=== PATIENT | female | born 1990 | race Caucasian/White ===

== ENCOUNTER 2016-06-19 10:44 | Emergency (ER) | payer SELFPAY ==
[2016-06-19 11:21] VITALS: BP 122/60
--- NOTE | 2016-06-19 12:12 | UC ---
Dental HPI - HPI Summary HPI Summary: Pt presents c/o right lower molar pain and swelling. Pt is concerned that she has a dental abscess. Pt does not have local dental care provider. Pt is new to the area and is without Health insurance and has not seen a PCP or Dental care provider in "a long while" - History of Current Complaint Chief Complaint: UCDentalProblem Stated Complaint: DENTAL COMPLAINT Time Seen by Provider: 06/19/16 11:38 Hx Obtained From: Patient Hx Last Menstrual Period: 05/29/16 ?: No Onset/Duration: Gradual Onset, Lasting Days Severity: Mild Pain Intensity: 6 Pain Scale Used: 0-10 Numeric Aggravating: Chewing Related History: Swelling, Other - tenderness with chewing, and generalized poor dentition - Allergies/Home Medications Allergies/Adverse Reactions: Allergies Allergy/AdvReac Type Severity Reaction Status Date / Time Morphine Allergy Unknown Verified 06/19/16 11:14 Reaction Details PMH/Surg Hx/FS Hx/Imm Hx Previously Healthy: Yes - Surgical History Surgical History: Yes Surgery Procedure, Year, and Place: Tonsillectomy X 2. barthlan gland removed. - Family History Known Family History: Positive: Other - positive FMH of URI - Social History Lives: With Family Alcohol Use: Occasionally Substance Use Type: None Smoking Status (MU): Heavy Every Day Tobacco Smoker Type: Cigarettes Amount Used/How Often: 1/2 pack daily Review of Systems Constitutional: Negative Skin: Negative Eyes: Negative ENT: Dental Pain Respiratory: Negative Cardiovascular: Negative Gastrointestinal: Negative Genitourinary: Negative Motor: Negative Neurovascular: Negative Musculoskeletal: Negative Neurological: Negative Psychological: Negative All Other Systems Reviewed And Are Negative: Yes Physical Exam Triage Information Reviewed: Yes Appearance: Well-Appearing Vital Signs: Initial Vital Signs Temp 98.4 F 06/19/16 11:16 Pulse 72 06/19/16 11:16 Resp 16 06/19/16 11:16 BP 122/60 06/19/16 11:16 Pulse Ox 100 06/19/16 11:16 Vital Signs Reviewed: Yes ENT Exam: Normal Dental Exam: Other Dental: Positive: Gross Decay/Caries @ - generalized, Dental Fracture @ - right lower jaw, last molar, wisdom tooth visible Neck exam: Normal Neck: Positive: Supple Respiratory Exam: Normal Cardiovascular Exam: Normal Musculoskeletal Exam: Normal Neurological Exam: Normal Psychological Exam: Normal Skin Exam: Normal Dental Complaint Course/Dx - Course Course Of Treatment: Pt does not have established care with a dentist or PCP. Pt was given referral to [facility] PCP provider and list of dental providers. Pt reports that she is seeking Health insurance. - Differential Dx/Diagnosis Differential Diagnosis/Dx: Dental Abscess, Dental Caries, Fractured Tooth Provider Diagnoses: Dental abscess. poor dentition. dental fracture right lower last molar Discharge - Discharge Plan Condition: Stable Disposition: HOME Prescriptions: Amoxicillin CAP* [Amoxicillin 500 MG CAP*] 500 mg PO Q12H #14 cap predniSONE TAB* [Deltasone TAB*] 30 mg PO DAILY #9 tab Patient Education Materials: Dental Abscess (ED) Referrals: [facility] PHYSICIAN REFERRAL [Outside] Non Staff,Doctor [Primary Care Provider] - Additional Instructions: Please establish care with a PCP. You have indicated that you do not have a Dental provider. We have provided a list of dental providers for you to establish with.
== END 2016-06-19 12:02 | disposition home or self-care (01) ==
LOC: UCCORT 10:44
DX: K04.7 Periapical abscess without sinus (principal); S02.5XXA Fracture of tooth (traumatic), initial encounter for closed fracture; X58.XXXA Exposure to other specified factors, initial encounter; Y92.9 Unspecified place or not applicable; F17.210 Nicotine dependence, cigarettes, uncomplicated; Z88.5 Allergy status to narcotic agent
CPT/HCPCS: 99202; G0463

== ENCOUNTER 2016-08-30 09:02 | Emergency (ER) | payer OTHER ==
[2016-08-30 09:51] VITALS: BP 122/74
--- NOTE | 2016-08-30 13:20 | UC ---
Throat Pain/Nasal Owen HPI - HPI Summary HPI Summary: PATIENT PRESENTS WITH BILATERAL TONSILAR SWELLING AND PAIN SINCE 2 DAYS. SHE DENIES SICK CONTACTS. SHE HAS HAD HER TONSILS OUT TWICE FOR UNKNOWN REASONS AND HAS NEVER HAD STREP THROAT BEFORE. SHE DENIES COUGH, SOB OR CONGESTION. SHE DENIES EYE PAIN OR EAR PAIN. THROAT PAIN IS DISCRETE AND DOES NOT RADIATE. SHE NOTES TO SOME PAIN OVER THE RIGHT LYMPH NODE. SHE DENIES GAYTAN. - History of Current Complaint Chief Complaint: UCRespiratory Stated Complaint: SORE THROAT Time Seen by Provider: 08/30/16 09:38 Hx Obtained From: Patient Hx Last Menstrual Period: 08/23/16 ?: No Onset/Duration: Gradual Onset Severity: Moderate Pain Intensity: 5 Pain Scale Used: 0-10 Numeric Associated Signs & Symptoms: Positive: Dysphagia, Hoarseness, Fever - Epiglottits Risk Factors Epiglottis Risk Factors: Negative - Allergies/Home Medications Allergies/Adverse Reactions: Allergies Allergy/AdvReac Type Severity Reaction Status Date / Time Morphine AdvReac Intermediate Vomiting Verified 08/30/16 09:45 PMH/Surg Hx/FS Hx/Imm Hx Previously Healthy: Yes - Surgical History Surgical History: Yes Surgery Procedure, Year, and Place: Tonsillectomy X 2. barthlan gland removed. - Family History Known Family History: Positive: Other - positive FMH of URI - Social History Occupation: Employed Full-time Lives: With Family Alcohol Use: Weekly Substance Use Type: None Smoking Status (MU): Heavy Every Day Tobacco Smoker Type: Cigarettes Amount Used/How Often: 1/2 pack daily Length of Time of Smoking/Using Tobacco: started at age 19 Review of Systems Constitutional: Fever Skin: Negative Eyes: Negative ENT: Sore Throat Respiratory: Negative Cardiovascular: Negative Motor: Negative Neurovascular: Negative Neurological: Negative Psychological: Negative All Other Systems Reviewed And Are Negative: Yes Physical Exam Triage Information Reviewed: Yes Appearance: Well-Appearing, No Pain Distress, Well-Nourished Vital Signs: Initial Vital Signs Temp 98.7 F 08/30/16 09:40 Pulse 93 08/30/16 09:40 Resp 16 08/30/16 09:40 BP 122/74 08/30/16 09:40 Pulse Ox 100 08/30/16 09:40 Vital Signs Reviewed: Yes Eye Exam: Normal Eyes: Positive: Conjunctiva Clear ENT: Positive: Pharyngeal erythema, Tonsillar swelling, Tonsillar exudate Neck exam: Normal Neck: Positive: Supple, Enlarged Nodes @ - RIGHT ENLARGED LN Respiratory Exam: Normal Respiratory: Positive: Chest non-tender, Lungs clear Cardiovascular Exam: Normal Cardiovascular: Positive: RRR Musculoskeletal Exam: Normal Musculoskeletal: Positive: Strength Intact Neurological Exam: Normal Neurological: Positive: Alert Psychological: Positive: Normal Response To Family Skin Exam: Normal Throat Pain/Nasal Course/Dx - Course Course Of Treatment: RAPID STREP POSITIVE. AMOXICILLIN GIVEN RX. TYLENOL RECOMMENDED. - Differential Dx/Diagnosis Differential Diagnosis/HQI/PQRI: Epiglottitis, Peritonsillar Abscess, Pharyngitis, Sinusitis Provider Diagnoses: STREP THROAT Discharge - Discharge Plan Condition: Stable Disposition: HOME Prescriptions: Amoxicillin CAP* [Amoxicillin 500 MG CAP*] 500 mg PO Q12H #20 cap Patient Education Materials: Strep Throat (ED) Forms: *Work Release Referrals: Quoc Gary MD [Primary Care Provider] - Additional Instructions: Dx: Strep Throat You will need antibiotic medicine to treat your strep throat. Please take the antibiotic as directed. You should feel better within 2 to 3 days after you start antibiotics. You may return to work or school 24 hours after you start antibiotics. If you have any questions about your medications, please do no hesitate to call or talk with your pharmacist. How can I manage my symptoms? Use lozenges, ice, soft foods, or popsicles to soothe your throat. Drink juice, milk shakes, or soup if your throat is too sore to eat solid food. Drinking liquids can also help prevent dehydration. Gargle with salt water. Mix teaspoon salt in a 1 cup of warm water and gargle. This may help reduce swelling in your throat. Do not smoke. Nicotine and other chemicals in cigarettes and cigars can cause lung damage and make your symptoms worse. Ask your healthcare provider for information if you currently smoke and need help to quit. E-cigarettes or smokeless tobacco still contain nicotine. Talk to your healthcare provider before you use these products. How do I prevent the spread of strep throat? Wash your hands often. Use soap and water. Wash your hands after you use the bathroom, change a child's diapers, or sneeze. Wash your hands before you prepare or eat food. Do not share food or drinks. Replace your toothbrush after you have taken antibiotics for 24 hours.
== END 2016-08-30 10:17 | disposition home or self-care (01) ==
LOC: UCCORT 09:02
DX: J02.0 Streptococcal pharyngitis (principal); Z88.5 Allergy status to narcotic agent; F17.210 Nicotine dependence, cigarettes, uncomplicated
CPT/HCPCS: 87651; 99212; G0463

== ENCOUNTER 2016-11-15 07:14 | Emergency (ER) | payer OTHER ==
[2016-11-15 07:25] VITALS: BP 120/60
[2016-11-15] MEDS ORDERED: Cephalexin CAP* 500 MG PO ONE (07:39)
--- NOTE | 2016-11-15 07:46 | UC ---
Complaint Female HPI - HPI Summary HPI Summary: 26 yo female with <24 hr hx of dysuria/urgency and frequency no back or abd pain no f/c no n/v/d no vag d/c or itch - History Of Current Complaint Chief Complaint: UCGU Stated Complaint: URINARY COMPLAINT Time Seen by Provider: 11/15/16 07:22 Hx Obtained From: Patient Hx Last Menstrual Period: 11/09/16 Onset/Duration: Gradual Onset, Lasting Hours Timing: Intermittent, Lasting Seconds Severity Currently: None Pain Intensity: 0 - treminal dysuria Pain Scale Used: 0-10 Numeric Character: Burning Aggravating Factor(s): Urination Alleviating Factor(s): Nothing Associated Signs And Symptoms: Positive: Negative Related Hx: Similar Episode/Dx as: - UTI - Allergies/Home Medications Allergies/Adverse Reactions: Allergies Allergy/AdvReac Type Severity Reaction Status Date / Time Morphine AdvReac Intermediate Vomiting Verified 11/15/16 07:25 PMH/Surg Hx/FS Hx/Imm Hx Previously Healthy: Yes - Surgical History Surgical History: Yes Surgery Procedure, Year, and Place: Tonsillectomy X 2. barthlan gland removed. - Family History Known Family History: Positive: Hypertension, Other - positive FMH of URI - Social History Alcohol Use: Occasionally Substance Use Type: None Smoking Status (MU): Heavy Every Day Tobacco Smoker Type: Cigarettes Amount Used/How Often: 1/2 pack daily Length of Time of Smoking/Using Tobacco: started at age 19 Review of Systems Constitutional: Negative Skin: Negative Eyes: Negative ENT: Negative Respiratory: Negative Cardiovascular: Negative Gastrointestinal: Negative Genitourinary: Dysuria, Frequency, Urgency Motor: Negative Neurovascular: Negative Musculoskeletal: Negative Neurological: Negative Psychological: Negative All Other Systems Reviewed And Are Negative: Yes Physical Exam Triage Information Reviewed: Yes Appearance: Well-Appearing, No Pain Distress, Well-Nourished Vital Signs: Initial Vital Signs Temp 98.8 F 11/15/16 07:18 Pulse 83 11/15/16 07:18 Resp 18 11/15/16 07:18 BP 120/60 11/15/16 07:18 Vital Signs Reviewed: Yes Eyes: Positive: Conjunctiva Clear ENT: Positive: Hearing grossly normal. Negative: Nasal congestion, Nasal drainage, Trismus, Muffled/hoarse voice Neck: Positive: Supple, Nontender, No Lymphadenopathy Respiratory: Positive: Lungs clear, Normal breath sounds, No respiratory distress, No accessory muscle use Cardiovascular: Positive: RRR, No Murmur. Negative: Tachycardia, Bradycardia Musculoskeletal: Positive: ROM Intact, No Edema Neurological: Positive: Alert, Muscle Tone Normal Psychological Exam: Normal Skin Exam: Normal Complaint Female Dx - Differential Dx/Diagnosis Provider Diagnoses: acute cystitis Discharge - Discharge Plan Condition: Stable Disposition: HOME Prescriptions: Cephalexin CAP* [Keflex CAP*] 500 mg PO BID #14 cap Patient Education Materials: Urinary Tract Infection in Women (ED) Referrals: Quoc Gary MD [Primary Care Provider] - 3 Days (if not better)
== END 2016-11-15 07:51 | disposition home or self-care (01) ==
LOC: UCCORT 07:14
DX: N30.00 Acute cystitis without hematuria (principal); Z88.5 Allergy status to narcotic agent; F17.210 Nicotine dependence, cigarettes, uncomplicated
CPT/HCPCS: 81003; 87077; 87086; 87186; 87491; 87591; 99212; A9270-GY; G0463

== ENCOUNTER 2017-04-11 16:13 | Emergency (ER) | payer OTHER ==
[2017-04-11 17:04] VITALS: BP 118/65
--- NOTE | 2017-04-11 17:07 | UC ---
Throat Pain/Nasal Owen HPI - HPI Summary HPI Summary: Cough, laryngitis, no fevers, has been lasting for several days - History of Current Complaint Chief Complaint: UCRespiratory Stated Complaint: SORE THROAT/COUGH Time Seen by Provider: 04/11/17 16:52 Hx Obtained From: Patient Hx Last Menstrual Period: 01/18/17 ?: Yes Onset/Duration: Sudden Onset, Lasting Days - 3, Still Present Severity: Moderate Cough: Nonproductive Associated Signs & Symptoms: Positive: Hoarseness - Allergies/Home Medications Allergies/Adverse Reactions: Allergies Allergy/AdvReac Type Severity Reaction Status Date / Time Morphine AdvReac Intermediate Vomiting Verified 04/11/17 16:56 Home Medications: Home Medications Vitamin [Calna] 1 tab PO DAILY 04/11/17 [History Confirmed 04/11/17] PMH/Surg Hx/FS Hx/Imm Hx Previously Healthy: Yes - Surgical History Surgical History: Yes Surgery Procedure, Year, and Place: Tonsillectomy X 2. barthlan gland removed. - Family History Known Family History: Positive: Hypertension, Other - positive FMH of URI - Social History Occupation: Employed Full-time Lives: With Family Alcohol Use: None Substance Use Type: None Smoking Status (MU): Former Smoker Type: Cigarettes Amount Used/How Often: 1/2 pack daily Length of Time of Smoking/Using Tobacco: started at age 19 When Did the Patient Quit Smoking/Using Tobacco: 02/19/17 - Immunization History Most Recent Influenza Vaccination: NO Review of Systems Constitutional: Negative Skin: Negative Eyes: Negative ENT: Negative Respiratory: Negative Cardiovascular: Negative Gastrointestinal: Negative Genitourinary: Negative Motor: Negative Neurovascular: Negative Musculoskeletal: Negative Neurological: Negative Psychological: Negative Is Patient Immunocompromised?: No All Other Systems Reviewed And Are Negative: Yes Physical Exam Triage Information Reviewed: Yes Appearance: Well-Appearing, No Pain Distress, Well-Nourished Vital Signs: Initial Vital Signs Temp 98.9 F 04/11/17 16:57 Pulse 75 04/11/17 16:57 Resp 18 04/11/17 16:57 BP 118/65 04/11/17 16:57 Pulse Ox 100 04/11/17 16:57 Vital Signs Reviewed: Yes Eye Exam: Normal Eyes: Positive: Conjunctiva Clear ENT Exam: Normal ENT: Positive: Normal ENT inspection, Hearing grossly normal, Pharynx normal, Nasal congestion, TMs normal, Hoarse voice, Uvula midline. Negative: Tonsillar swelling, Tonsillar exudate, Trismus, Muffled voice, Dental tenderness, Sinus tenderness Dental Exam: Normal Neck exam: Normal Neck: Positive: Supple, Nontender, No Lymphadenopathy Respiratory Exam: Normal Respiratory: Positive: Chest non-tender, Lungs clear, Normal breath sounds, No respiratory distress, No accessory muscle use Cardiovascular Exam: Normal Cardiovascular: Positive: RRR, No Murmur, Pulses Normal, Brisk Capillary Refill Musculoskeletal Exam: Normal Musculoskeletal: Positive: Strength Intact, ROM Intact, No Edema Neurological Exam: Normal Neurological: Positive: Alert, Muscle Tone Normal Psychological Exam: Normal Skin Exam: Normal Diagnostics - Laboratory Diagnostic Studies Completed/Ordered: RST (-) Throat Pain/Nasal Course/Dx - Course Assessment/Plan: Increase fluids rest tylenol, throat john. follow with pcp - Differential Dx/Diagnosis Provider Diagnoses: Laryngitis, viral illness Discharge - Discharge Plan Condition: Stable Disposition: HOME Patient Education Materials: Viral Syndrome (ED), Cold Symptoms (ED) Referrals: Ina Smart MD [Primary Care Provider] - If Needed Additional Instructions: I would encourage you to speak with your doctor about getting a flu vaccine!
== END 2017-04-11 17:36 | disposition home or self-care (01) ==
LOC: UCCORT 16:13
DX: O99.519 Diseases of the respiratory system complicating pregnancy, unspecified trimester (principal); J04.0 Acute laryngitis; B34.9 Viral infection, unspecified; Z3A.00 Weeks of gestation of pregnancy not specified; Z87.891 Personal history of nicotine dependence; Z88.5 Allergy status to narcotic agent
CPT/HCPCS: 87651; 99211; G0463

== ENCOUNTER 2017-06-10 15:27 | Emergency (ER) | payer SELFPAY ==
[2017-06-10 15:45] VITALS: BP 137/70
--- NOTE | 2017-06-10 15:57 | UC ---
Complaint Female HPI - HPI Summary HPI Summary: pt c/o sudden onset urinary frequency. Pt is 21 weeks . - History Of Current Complaint Chief Complaint: UCGU Stated Complaint: URINARY COMPLAINT Time Seen by Provider: 06/10/17 15:47 Hx Obtained From: Patient Hx Last Menstrual Period: 01/18/17 ?: Yes Onset/Duration: Sudden Onset, Still Present Timing: Intermittent Severity Initially: Mild Severity Currently: Mild Pain Intensity: 0 Character: Not Applicable Aggravating Factor(s): Nothing Alleviating Factor(s): Nothing Associated Signs And Symptoms: Positive: Negative - Risk Factors Ectopic Risk Factor: Negative - Allergies/Home Medications Allergies/Adverse Reactions: Allergies Allergy/AdvReac Type Severity Reaction Status Date / Time morphine Allergy Vomiting Verified 06/10/17 15:46 PMH/Surg Hx/FS Hx/Imm Hx Previously Healthy: Yes - Surgical History Surgical History: Yes Surgery Procedure, Year, and Place: Tonsillectomy X 2. barthlan gland removed. - Family History Known Family History: Positive: Hypertension, Other - positive FMH of URI - Social History Occupation: Employed Full-time Lives: With Family Alcohol Use: None Substance Use Type: None Smoking Status (MU): Former Smoker Type: Cigarettes Amount Used/How Often: 1/2 pack daily Length of Time of Smoking/Using Tobacco: started at age 19 Have You Smoked in the Last Year: Yes When Did the Patient Quit Smoking/Using Tobacco: 02/19/17 - Immunization History Most Recent Influenza Vaccination: NO Review of Systems Constitutional: Negative Skin: Negative Eyes: Negative ENT: Negative Respiratory: Negative Cardiovascular: Negative Gastrointestinal: Negative Genitourinary: Frequency Motor: Negative Neurovascular: Negative Musculoskeletal: Negative Neurological: Negative Psychological: Negative Is Patient Immunocompromised?: No All Other Systems Reviewed And Are Negative: Yes Physical Exam Triage Information Reviewed: Yes Appearance: Well-Appearing Vital Signs: Initial Vital Signs Temp 99.2 F 06/10/17 15:43 Pulse 74 06/10/17 15:43 Resp 18 06/10/17 15:43 BP 137/70 06/10/17 15:43 Pulse Ox 100 06/10/17 15:43 Vital Signs Reviewed: Yes Eye Exam: Normal ENT Exam: Normal Dental Exam: Normal Neck exam: Normal Respiratory Exam: Normal Cardiovascular: Positive: RRR Abdominal Exam: Other - Musculoskeletal Exam: Normal Neurological Exam: Normal Psychological Exam: Normal Skin Exam: Normal Complaint Female Dx - Course Course Of Treatment: I discussed with the pt the results of the UA and discussed with the pt that as her progresses that the baby growth can increase urinary frequency. - Differential Dx/Diagnosis Provider Diagnoses: urinary frequency Discharge - Discharge Plan Condition: Stable Disposition: HOME Patient Education Materials: Urinary Urgency and Frequency (DC) Referrals: Ina Smart MD [Primary Care Provider] - If Needed Additional Instructions: Please follow up with your PCP or return to clinic as needed.
== END 2017-06-10 16:03 | disposition home or self-care (01) ==
LOC: UCCORT 15:27
DX: O26.892 Other specified pregnancy related conditions, second trimester (principal); Z3A.21 21 weeks gestation of pregnancy; R35.0 Frequency of micturition; Z87.891 Personal history of nicotine dependence; Z88.5 Allergy status to narcotic agent
CPT/HCPCS: 81003; 99211; G0463

== ENCOUNTER 2023-06-08 08:16 | Inpatient (IN) ==
[~2023-06-08 08:16] MED LIST: Dexamethasone IV 4 MG/ML VIAL 1 ml VIAL ONE; Lidocaine 2% PF 5 ML VIAL ONE; Midazolam 2 mg/2 ml VIAL 1 mg/ml 2 ml VIAL (2 mg) ONE; Naloxone 0.4 mg VIAL 0.4 mg/ml 1 ml VIAL IV PRN; Ondansetron 4 mg VIAL 2 MG/ML 2 ml VIAL ONE; Prochlorperazine 5 mg/ml 2 ml VIAL (10 mg) IV PRN; Propofol 10 MG/ML 20 ML BTL ONE; Rocuronium 50 mg VIAL 10 mg/ml 5 ml VIAL (50 mg) ONE; Sevoflurane BOTTLE ONE; fentaNYL 250 mcg/5 ml 50 MCG/ML 5 ml VIAL (250 MCG) ONE
[2023-06-08] MEDS ORDERED: ceFAZolin 2 GM PREMIX 2 GM/50 ML BAG ONE (08:41)
[2023-06-08] MEDS ORDERED: Chlorhexidine MOUTHWASH 0.12% 15 ML UDC ONE (08:41)
[2023-06-08 08:51] LABS: Rapid COVID-19 Molecular Undetected (Undetected)
[2023-06-08] MEDS ORDERED: Propofol 10 MG/ML 20 ML BTL ONE (09:27)
[2023-06-08] MEDS ORDERED: Acetaminophen IV 1 GM/100ML 1,000 MG/100 ML BAG IV ONE (10:16)
[2023-06-08] MEDS ORDERED: Gelfoam Sponge SIZE 100 SPONGE ONE (10:17)
[2023-06-08] MEDS ORDERED: ceFAZolin VIAL VIAL ONE (10:17)
[2023-06-08] MEDS ORDERED: Thrombin 5,000 UNITS(BOVINE) for Ultrasound Guided Pseudoaneursym ONE (10:17)
[2023-06-08] MEDS ORDERED: Lidocaine 1% w EPI 1:100,000 MDV 20 ML VIAL ONE (10:17)
[2023-06-08] MEDS ORDERED: Midazolam 2 mg/2 ml VIAL 1 mg/ml 2 ml VIAL (2 mg) ONE (11:13)
[2023-06-08] MEDS ORDERED: fentaNYL 100 mcg/2 ml 50 MCG/ML VIAL ONE ×3 (11:29→15:10)
[2023-06-08] MEDS ORDERED: Rocuronium 50 mg VIAL 10 mg/ml 5 ml VIAL (50 mg) ONE (12:08)
[2023-06-08] MEDS ORDERED: Sterile Water for Inj 10 ML ONE (12:17)
[2023-06-08] MEDS ORDERED: Ondansetron 4 mg VIAL 2 MG/ML 2 ml VIAL IV PRN (13:49)
[2023-06-08] MEDS ORDERED: Phenol 1.4% Throat Spray BTL MT PRN (13:49)
[2023-06-08] MEDS ORDERED: Magnesium Hydroxide LIQ 30 ML UDC PO PRN (13:49)
[2023-06-08] MEDS ORDERED: Dextran 70/Hypromellose Tears Eye Drops 15 ml BTL (for Artificials Tears) BOTH EYES PRN (13:49)
[2023-06-08] MEDS ORDERED: Benzocaine/Menthol LOZ MT PRN (13:49)
[2023-06-08] MEDS ORDERED: Calcium Carb (TUMS) 500 mg CHEW TAB PO PRN (13:49)
[2023-06-08] MEDS: Buffered Lidocaine 1% SYRIN 1 ml INTRADERM ONE (14:10)
[2023-06-08] MEDS: fentaNYL 100 mcg/2 ml 50 MCG/ML VIAL IV PRN (14:12)
[2023-06-08] MEDS: Lactated Ringers 1000 ml BAG 1,000 ML IV SCH ×2 (15:28→17:46)
[2023-06-08] MEDS: Ondansetron 4 mg VIAL 2 MG/ML 2 ml VIAL ONE (17:39)
[2023-06-09] MEDS: Senna TAB 8.6 mg TAB PO PRN (05:46)
[2023-06-09] MEDS: NORETHINDRONE E ESTRADIOL IRON PO SCH (08:16)
[2023-06-09 10:01] VITALS: BP 120/59
== END 2023-06-09 11:20 | disposition home or self-care (01) | DRG 304 ==
LOC: OR 08:16 → SSU 17:30
PROVIDERS: ADMIT Neurological Surgery; ATTEND Neurological Surgery
PROC: O.NEPLF (2023-06-08 10:15)